=== PATIENT | female | born 1930 | race Caucasian/White ===

== ENCOUNTER 2019-11-15 16:14 | Inpatient (IN) | payer MEDICARE, MEDICAID, OTHER ==
[2019-11-15] MEDS ORDERED: Acetaminophen 325 MG TAB PO PRN (21:14)
[2019-11-15] MEDS ORDERED: Acetaminophen 650 MG Suppository PR PRN (21:14)
[2019-11-15] MEDS ORDERED: Sodium Chloride 0.9% 1,000 ML IV SCH (21:15)
[2019-11-15] MEDS ORDERED: Melatonin 3 MG TAB PO PRN (21:18)
[2019-11-15] MEDS: Sodium Chloride 0.9% 1,000 ML IV SCH (21:39)
[2019-11-15] MEDS: Piperacillin/Tazobactam 3.375 GM in Sodium Chloride 0.9% 100 ML IVPB SCH (22:29)
--- NOTE | 2019-11-15 22:54 | ULT ---
RIGHT UPPER QUADRANT ULTRASOUND: 11/15/19 HISTORY: Abnormal CT scan from earlier today. FINDINGS: The liver demonstrates homogeneous echotexture without focal mass or intrahepatic ductal dilatation. The gallbladder is distended measuring 11.7 cm in length. with mobile shadowing gallstones, gallbladd er all thickening (2 cm) and pericholecystic fluid. The common duct measures 5 mm in diameter. There is a prominent right renal pelvis without definite hydronephrosis. No free fluid is seen in the Morri son's pouch. IMPRESSION: Gallbladder hydrops with cholelithiasis, gallbladder wall thickening and pericholecystic fluid. Find ings are suspicious for acute cholecystitis. POS: [facility]
[2019-11-15] MEDS ORDERED: Furosemide 20 MG/2 ML VIAL SLOW IVP SCH (23:15)
--- NOTE | 2019-11-15 23:15 | PDOC.HHP ---
Hospitalist HPI - History of Present Illness Multiple complaints History of Present Illness: Patient is somewhat of a poor historian though she is AO x 4. Unclear what brought her in today but states she has been feeling worn out for the last few days. Normally functions independently but has been sedentary due to generalized weakness. Reports difficulty urinating and reports having issues with diarrhea which was worse this morning. She states it was watery but unsure if any blood in her stools. Complains of RLQ abdominal soreness but denies any significant pain. No chest pain, no cough or hemoptysis. Denies any nausea/vomiting but states she has not been drinking any fluids the last few days. Reports decreased appetite as well. ED Course: Patient initially seen in [facility] and per RN she was found to be hypoxic therefore put on Oxygen 2L by [place] and tested for COVID. She had CT imaging of the abdomen at outside ED and had a GB US done here. Per Dr. Balderas, she was treated with IV Antibiotics (Zosyn and Vanc) for possible cholecystitis and case was discussed with Dr. Avery who advised repeat LFTs in the morning. Per ED notes it appears patient at some point was in "Aflutter/block", also she was noted to have a BP of 96/41. An EKG done here reportedly showed NSR with HR 76 CXR done showed findings suspicious for mild congestive heart failure. Small bilateral pleural effusions seen with cardiomegaly, mild pulmonary vascular congestion with interstitial prominence that may reflect underlying interstitial edema. per CT A/P report patient with: 1. Groundglass nonspecific densities at the bilateral lower lobes, right greater than left. Noncalcified 1.8 x 0.8, 0.8 cm noncalcified pulmonary nodule at right milddle lobe laterally abutting the right hemidiaphragm. Tiny pleural effusion. 2. Very distended gallbladder. Poor images due to breathing motion. 3. 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 Labs were notable for indeterminate troponins, therefore Trop trended and given ASA 324 mg . BUN 25, Creat 1.14. WCC 19.5 UA+ for UTI. Hospitalist ROS - Review of Systems Constitutional: reports: weakness, malaise. denies: fever, chills, sweats, other Eyes: denies: pain, vision change, conjunctivae inflammation, eyelid inflammation, redness, other ENT: denies: ear pain, ear discharge, nose pain, nose discharge, nose congestion , mouth pain, mouth swelling, throat pain, throat swelling, other Respiratory: reports: shortness of breath, SOB with excertion. denies: cough, dry, hemoptysis, pleuritic pain, sputum, wheezing, other Cardiovascular: denies: chest pain, palpitations, orthopnea, paroxysmal noc. dyspnea, edema, light headedness, other Gastrointestinal: reports: abdominal pain (RLQ), diarrhea, other (decreased appetite). denies: nausea, vomiting, constipation, melena, hematochezia Genitourinary: reports: dysuria, other (decreased output) Musculoskeletal: denies: neck pain, shoulder pain, arm pain, back pain, hand pain, leg pain, foot pain, other Skin: denies: rash, lesions, divine, bruising, other Neurological: denies: weakness, numbness, incoordination, change in speech, confusion, seizures, other - Medication Medications: Active Medications Generic Name Dose Route Start Last Admin Trade Name Freq PRN Reason Stop Dose Admin Sodium Chloride 1,000 mls @ 50 mls/hr 11/15/19 21:18 11/15/19 21:39 Normal Saline 0.9% IV 1,000 mls .Q20H CELE Administration Piperacillin Sod/Tazobactam 100 mls @ 200 mls/hr 11/15/19 23:00 11/15/19 22: 29 Sod 3.375 gm/ Sodium Chloride IVPB 100 mls 0500,1100,1700,2300 CELE Administration CURRENT MEDICATIONS: CeleXA ThuNov 15, 2019 16:47 ALEIDA Pinto Kassidy tablet : Strength - 10 mg : ORAL Patient Dose: 0.5 tab(s) Oral once a day. Flonase Allergy Relief ThuNov 15, 2019 16:48 ALEIDA Pinto Kassidy spray,suspension : Strength - 50 mcg/actuation : NASAL Patient Dose: Unknown. metoprolol tartrate oral ThuNov 15, 2019 16:49 ALEIDA Pinto Kassidy tablet : Strength - 25 mg : ORAL Patient Dose: 0.5 tab(s) Oral once a day. Namenda ThuNov 15, 2019 16:49 ALEIDA Pinto, Nayeli tablet : Strength - 10 mg : ORAL Patient Dose: 10 mg Oral once a day. traZODone ThuNov 15, 2019 16:50 ALEIDA Pinto, Nayeli tablet : Strength - 50 mg : ORAL Patient Dose: 50 mg Oral once a day (at bedtime). Zofran oral ThuNov 15, 2019 16:50 ALEIDA Pinto, Nayeli tablet : Strength - 4 mg : ORAL Patient Dose: 4 mg Oral every 6 hours PRN. ALLERGIES: No known drug allergies. Hospitalist History - Past Medical History Cardiac: reports: HTN, Hyperlipidemia Heme/Onc: reports: Anemia NOS Psych: reports: Anxiety, Other (Dementia, insomnia, narcolepsy) - Past Surgical History Past Surgical History: reports: no pertinent history - Family History Family History: reports: no pertinent history - Social History Smoking Status: Never smoker Alcohol: reports: None Drugs: reports: none Living Situation: With Family, Other (retirement care facility with ) Activity level: independent ambulation - Exam General Appearance: NAD, awake alert Eye: PERRL ENT: normocephalic atraumatic, no oropharyngeal lesions Neck: supple, symmetric, no lymphadenopathy Heart: RRR, no murmur, no gallops, no rubs, normal peripheral pulses Respiratory: CTAB (e), no wheezes, no rales, no ronchi, normal chest expansion, no tachypnea, wheezes Respiratory - other findings: Reduced air entry at the bilateral bases Gastrointestinal: soft, non-distended, normal bowel sounds Gastrointestinal - other findings: mild RLQ discomfort with palpation Extremities: no edema Skin: no lesions, no rashes Neurological: cranial nerve grossly intact, normal sensation to touch, no weakness Musculoskeletal: normal tone, normal strength, no muscle wasting, generalized weakness Psychiatric: normal affect, A&O x 3, oriented to person, oriented to place, oriented to time Hospitalist Results - Radiology Interpretation CT scan - abdomen Status: report reviewed by fl Hospitalist H&P A/P - Problem (1) Abdominal discomfort Code(s): R10.9 - UNSPECIFIED ABDOMINAL PAIN Status: Acute (2) Dysuria Code(s): R30.0 - DYSURIA Status: Acute (3) Generalized weakness Code(s): R53.1 - WEAKNESS Status: Acute (4) Shortness of breath Code(s): R06.02 - SHORTNESS OF BREATH Status: Resolved (5) Diarrhea Code(s): R19.7 - DIARRHEA, UNSPECIFIED Status: Acute (6) Hypertension Code(s): I10 - ESSENTIAL (PRIMARY) HYPERTENSION Status: Chronic (7) Hyperlipidemia Code(s): E78.5 - HYPERLIPIDEMIA, UNSPECIFIED Status: Chronic (8) Anxiety Code(s): F41.9 - ANXIETY DISORDER, UNSPECIFIED Status: Chronic (9) Anemia Code(s): D64.9 - ANEMIA, UNSPECIFIED Status: Chronic (10) Dementia Code(s): F03.90 - UNSPECIFIED DEMENTIA WITHOUT BEHAVIORAL DISTURBANCE Status: Chronic - Plan Plan: Cardiac monitoring. Trend troponins. Check Mg+ and BNP. Echo ordered. Lasix 20 mg IV x 1 given changes of CHF on CXR. Monitor O2 sats. D-Dimer added on. COVID testing pending. UA/UCx pending. Continue Cholecystitis. Continue IV antibiotics. RUQ results pending. Repeat LFTs in the am. Dr. Avery was consulted, awaiting surgical review. Stool studies including C. Diff. Orthostatic BPs. PT/OT consults. CODE STATUS: Has out of hospital DNAR. MPOA: Her son Jose Antonio Mills.
[2019-11-15 23:57] LABS: CKMB 2.1 ng/mL (0-6.6)
[2019-11-16 02:49] LABS: CKMB 2.6 ng/mL (0-6.6)
[2019-11-16 05:46] LABS: #Eosinphils 0.2 thou/uL (0.0-0.7); #Lymphocytes 1.8 thou/uL (1.20-3.40); #Monocytes 1.2 thou/uL (0.11-0.59); #Neutrophils 13.4 thou/uL (1.40-6.50); %Basophils 0.3 % (0.0-1.0); %Eosinophils 0.9 % (0.0-10.0); %Lymphocytes 10.8 % (21.0-51.0); %Neutrophils 81.1 % (42.0-75.0); Hemoglobin 13.9 g/dL (12.0-16.0); Mean Corpuscular HGB CONC 32.8 g/dL (32.0-36.0); Mean Corpuscular Hemoglobin 28.2 pg (27.0-31.0); Mean Corpuscular Volume 85.8 fL (78.0-98.0); Mean Platelet Volume 8.6 fL (7.4-10.4); Platelet Count 225 thou/uL (130-400); RBC Distribution Width 12.6 % (11.5-14.5); Red Blood Cell (RBC) Count 4.94 mill/uL (4.20-5.40); White Blood Cell (WBC) Count 16.6 thou/uL (4.8-10.8)
[2019-11-16 06:09] LABS: ALT (SGPT) 28 U/L (8-55); AST (SGOT) 34 U/L (5-34); Albumin 3.3 g/dL (3.4-4.8); Alkaline Phosphatase 83 U/L (40-110); Anion Gap 14 mmol/L (10-20); BUN (Urea Nitrogen) 25 mg/dL (9.8-20.1); Bilirubin, Total 0.9 mg/dL (0.2-1.2); Calc. Creatinine Clearance 49 mL/min (70-130); Calcium 8.2 mg/dL (7.8-10.44); Carbon Dioxide 21 mmol/L (23-31); Chloride 106 mmol/L (98-107); Estimated GFR-MDRD 56; Globulin 3.3 g/dL (2.4-3.5); Glucose 91 mg/dL (83-110); Lipase 16 U/L (8-78); Protein, Total 6.6 g/dL (6.0-8.3); Sodium 138 mmol/L (136-145)
[2019-11-16] MEDS: Piperacillin/Tazobactam 3.375 GM in Sodium Chloride 0.9% 100 ML IVPB SCH ×4 (06:28→22:29)
[2019-11-16] MEDS: Furosemide 20 MG/2 ML VIAL SLOW IVP SCH ×2 (06:28→13:18)
--- NOTE | 2019-11-16 07:50 | CT ---
PRELIMINARY REPORT/[facility]/EMERGENCY AFTER HOURS PROCEDURE: This report was discussed with Angelica Finnegan RN by Nadira Vigil on Nov 16, 2019 02:17:00 CDT. Jim warner electronically signed by Nadira Vigil on November 16, 2019 2:17:[address] ANGIOGRAM OF THE CHEST CLINICAL HISTORY: Dyspnea and positive D-Dimer. TECHNIQUE: Axial images obtained. Coronal images obtained. Sagittal images obtained. Exam is performe d with administration of 100 mL of Isovue-370 intravenous contrast. 3D maximum intensity projections (MIPs) were performed. Per PQRS, CT exam is performed using one or more of the following dose reduction technique: Automated exposure control, adjustment of mA and/or KV according to patient size, or use of iterative reconstruction techniques. COMPARISON: None. FINDINGS: Post-contrast appearance of the pulmonary arteries shows no evidence for filling defect. Normal caliber of pulmonary artery trunk in relationship to the aorta. Aorta is negative for aortic dissection and aortic aneurysm. Normal sized heart. Small right pleural effusion is seen. No consolidations. Negative for pneumothorax. Gallbladder is mildly hydropic with thickening of t he gallbladder garcia suggesting acute cholecystitis. Recommend gallbladder ultrasound for further workup. A low-density lesion in the left midpole kidney is seen measuring 4.4 cm in diameter like ly cystic structure vs mass lesion. Recommend non-emergent ultrasound follow-up. Atherosclerotic calcification of the aorta and coronary arteries is seen. The aorta is ectatic. Atele ctasis and scarring of the lung bases is seen. A small hiatal hernia is seen. The rest of the viscera, and bones are unremarkable. IMPRESSION: 1. Acute cholecystitis. Recommend gallbladder ultrasound for further workup. 2. Left midpole renal cyst measuring 4.4 cm. Recommend non-emergent ultrasound follow-up. 3. Small right pleural effusion. Otherwise, negative for pulmonary embolism, aortic aneurysm, or aort ic dissection. 4. Chronic findings as described above. ELECTRONICALLY SIGNED BY: Richie Mayorga MD Nov 16, 2019 1:49:12 AM CDT FINAL REPORT: EXAM: CT ANGIOGRAM OF THE CHEST: HISTORY: Elevated d-dimer. Hypoxia. COMPARISON: None. TECHNIQUE: CT angiogram of the chest is performed in the axial plane. Three-dimensional reformatted images are s ubmitted for interpretation. FINDINGS: Mediastinum: No mass, lymphadenopathy or hematoma. HEART: Upper normal heart size. No significant pericardial fluid. Aorta: Atherosclerosis without aneurysm, dissection or periaortic fat stranding. Upper solid abdominal viscera: Persistent fullness of the head of the pancreas compatible with previo usly suggested possible venous varix. CT evidence of pericholecystic fluid with mild gallbladder distention, incompletely evaluated. Hypodensity emanates from the left renal cortex. Trachea and central bronchi: Patent. Pleural spaces: Small right-sided pleural effusion. Lung parenchyma: Right lower lobe opacification may represent atelectasis, pneumonia or aspiration. P atchy groundglass opacities are noted in the left and right lung. Pneumothorax: None. Osseous structures: No lytic or blastic lesions. Pulmonary arteries: Adequate contrast opacification pulmonary arterial system to the level of segment al arteries. No filling defect to suggest pulmonary embolism. IMPRESSION: 1. This report is in agreement with initial report by [facility]. 2. No evidence of pulmonary artery embolism to the level of the segmental arteries. 2. Distended gallbladder worrisome for cholecystitis. Refer to gallbladder ultrasound report 11/15/2019 for further detail. Transcribed Date/Time: 11/16/2019 8:17 AM
[2019-11-16] MEDS: Saccharomyces boulardii 250 MG CAP PO SCH ×2 (08:24→10:21)
[2019-11-16] MEDS: Aspirin Chewable 81 MG TAB PO SCH ×2 (08:24→10:21)
[2019-11-16] MEDS ORDERED: Prevnar 13-Val Conj/PF 0.5 ML SYRINGE IM ONE (09:00)
[2019-11-16] MEDS ORDERED: Potassium Chloride 20 MEQ TAB PO SCH (12:30)
[2019-11-16] MEDS: Vancomycin 1 GM in Premix Bag 1 BAG IVPB SCH (13:16)
[2019-11-16] MEDS ORDERED: Iopamidol-370 76% 500 ML 1 ML ONE (14:06)
[2019-11-16 14:36] VITALS: BMI 29.6
--- NOTE | 2019-11-16 16:37 | CON ---
DATE OF CONSULTATION: 11/16/2019 REASON FOR CONSULTATION: Positive troponins. HISTORY OF PRESENT ILLNESS: Ms. Mills is an 89-year-old female, who comes to the hospital for not feeling well. She is oriented, but has difficult time giving history. She noticed she had a hard time going to the bathroom urinating and eventually started having diarrhea and right lower quadrant abdominal pain. She was evaluated in the ER and admitted. After CT of the abdomen showed possible cholecystitis during her admission, she was given IV antibiotics just to cover her for possible sepsis. Troponins were drawn and they were mildly elevated, so Cardiology has been consulted for this. She denies chest pain. No angina. No shortness of breath. PAST MEDICAL HISTORY: 1. Hypertension. 2. Hyperlipidemia. 3. Anemia. 4. Anxiety. 5. Alzheimer dementia. 6. Insomnia. 7. Narcolepsy. PAST SURGICAL HISTORY: None. OUTPATIENT MEDICATIONS: 1. Celexa. 2. Flonase. 3. Metoprolol tartrate 25 mg daily. 4. Namenda. 5. Trazodone. 6. Zofran p.r.n. SOCIAL HISTORY: No alcohol, tobacco, or drugs. She lives in a long-term care facility with her . REVIEW OF SYSTEMS: A 12-point review of systems was done and was all negative unless stated in the history of present illness. PHYSICAL EXAMINATION: VITAL SIGNS: Temperature 97.7, pulse 78, respiratory rate 18, saturation 94% on room air, blood pressure 117/59. GENERAL: Awake, alert, oriented to person, place, and difficulty with time and no distress. HEENT: Normocephalic and atraumatic. NECK: Supple. LUNGS: Clear. CARDIOVASCULAR: S1, S2. ABDOMEN: Has tenderness, but no rebound or guarding. EXTREMITIES: No edema. SKIN: Warm and dry. LABORATORY DATA: Laboratory work was reviewed. White count of 16, hemoglobin 13, hematocrit 42, and platelet count 225. Coags, D-dimer was high. Chemistry; sodium 138, potassium was 3.0, chloride 106, carbon dioxide of 21, anion gap of 14, BUN 25, creatinine 0.94, bilirubin is total of 0.9 with direct of 0.5. Troponin was 0.03 and 0.04. BNP was 61. Albumin of 3.3, normal TSH, normal lipase. EKG was reviewed. CT of the chest and thorax was reviewed as well as abdominal ultrasound. ASSESSMENT: 1. Type 2 demand type of ischemia. This is mild intermittent troponin, which is unlikely to be related to an acute coronary syndrome. Most likely, this is just demand ischemia from her current situation. 2. Acute cholecystitis. Per primary team. PLAN: Echocardiogram once COVID-19 has been ruled out. Thank you for letting us to participate in the care of your patient. We will follow. Job ID: [id number]
--- NOTE | 2019-11-16 18:12 | PDOC.HOSPP ---
- Subjective Encounter Date: 11/16/19 Encounter Time: 18:05 Subjective: f/u for abd pain and suspected cholecystitis on current Zosyn. Plans for conservative mgmt and HIDA scan per Gen surgery recommendations. COVID-19 pending. - Objective Vital Signs & Weight: Vital Signs (12 hours) Temp Pulse Resp BP Pulse Ox 11/16/19 11:08 97.7 F 78 18 117/59 L 94 L 11/16/19 08:00 97.7 F 84 18 106/68 93 L Weight Admit Weight 158 lb 12.8 oz Weight 162 lb 1.6 oz I&O: 11/15/19 11/16/19 11/17/19 06:59 06:59 06:59 Intake Total 528 Output Total 700 600 Balance -172 -600 Result Diagrams: 11/16/19 05:08 11/16/19 05:08 Additional Labs: Microbiology 11/16/19 08:30 Stool - Pending C. difficile GDH Antigen & Toxins - Final 11/16/19 08:30 Stool - Loose Stool Lactoferrin - Final 11/16/19 08:30 Stool - Loose Rapid Parasite Screen - Final 11/16/19 08:30 Stool Campylobacter Antigen Assay - Final 11/16/19 08:30 Stool Shiga Toxin Test - Final 11/16/19 00:39 Urine clean catch Urine Culture - Preliminary NO GROWTH AT 12 HOURS 11/15/19 11:41 Venous blood - Right Arm Blood Culture - Preliminary Specimen has been received and culture in progress. No Growth to date. 11/15/19 11:35 Venous blood - Right Hand Blood Culture - Preliminary Specimen has been received and culture in progress. No Growth to date. Laboratory Tests 11/15/19 11/15/19 11/15/19 11:41 11:41 15:12 D-Dimer Potassium 3.6 Creatinine 1.14 H Magnesium Troponin I 0.047 H 0.056 H Lipase TSH 3rd Generation 11/15/19 11/15/19 11/15/19 21:39 21:39 23:26 D-Dimer 4.22 H Potassium Creatinine Magnesium 2.4 Troponin I 0.046 H Lipase TSH 3rd Generation 11/16/19 11/16/19 11/16/19 01:52 05:08 05:08 D-Dimer Potassium Creatinine Magnesium Troponin I 0.036 H Lipase 16 TSH 3rd Generation 1.0233 Radiology Reviewed by me: Yes (CTA chest - no PE, gallbladder thickening) EKG Reviewed by me: Yes (Tele - SR) Hospitalist ROS - Medication Medications: Active Medications Generic Name Dose Route Start Last Admin Trade Name Elsa PRN Reason Stop Dose Admin Aspirin 81 mg 11/16/19 09:00 11/16/19 10:21 Aspirin Chewable PO 81 mg DAILY CELE Administration Furosemide 20 mg 11/16/19 06:00 11/16/19 13:18 Lasix SLOW IVP 20 mg 0600,1400 CELE Administration Sodium Chloride 1,000 mls @ 50 mls/hr 11/15/19 21:18 11/15/19 21:39 Normal Saline 0.9% IV 1,000 mls .Q20H CELE Administration Piperacillin Sod/Tazobactam 100 mls @ 200 mls/hr 11/15/19 23:00 11/16/19 16: 43 Sod 3.375 gm/ Sodium Chloride IVPB 100 mls 0500,1100,1700,2300 CELE Administration Vancomycin HCl 1 gm/ Device 200 mls @ 200 mls/hr 11/16/19 14:00 11/16/19 13: 16 IVPB 200 mls 1400 CELE Administration Saccharomyces Boulardii 250 mg 11/16/19 09:00 11/16/19 10:21 Florastor PO 250 mg DAILY CELE Administration - Exam General Appearance: NAD, awake alert Eye: PERRL, anicteric sclera ENT: normocephalic atraumatic, no oropharyngeal lesions Neck: supple, symmetric, no JVD, no thyromegaly, no lymphadenopathy Heart: RRR, no gallops, no rubs, normal peripheral pulses Heart - other findings: S1, S2 Respiratory: CTAB, no wheezes, no rales, no ronchi, normal chest expansion Gastrointestinal: soft, non-tender, normal bowel sounds, no palpable masses Extremities: no cyanosis, no clubbing, no edema Skin: normal turgor Neurological: cranial nerve grossly intact, no new deficit Musculoskeletal: normal tone, generalized weakness Psychiatric: normal affect, oriented to person, oriented to place Hosp A/P (1) Cholecystitis, acute Code(s): K81.0 - ACUTE CHOLECYSTITIS Status: Acute Plan: suspected given CT/ABD sono findings, plan for HIDA in am, may need conservative mgmt (2) Abdominal pain Code(s): R10.9 - UNSPECIFIED ABDOMINAL PAIN Status: Acute Qualifiers: Abdominal location: epigastric Qualified Code(s): R10.13 - Epigastric pain Plan: Improved, supportive, see #1 (3) Dyspnea Code(s): R06.00 - DYSPNEA, UNSPECIFIED Status: Acute Plan: Etiology unclear, CXR negative (4) Diarrhea Code(s): R19.7 - DIARRHEA, UNSPECIFIED Status: Acute Plan: Stool studies negative, supportive (5) Type 2 myocardial infarction Code(s): I21.A1 - MYOCARDIAL INFARCTION TYPE 2 Status: Acute Plan: Secondary to #1, conservative mgmt (6) Generalized weakness Code(s): R53.1 - WEAKNESS Status: Chronic (7) Hypertension Code(s): I10 - ESSENTIAL (PRIMARY) HYPERTENSION Status: Chronic Qualifiers: Hypertension type: essential hypertension Qualified Code(s): I10 - Essential (primary) hypertension - Plan continue antibiotics, PT/OT, pediatric social worker, out of bed/ambulate, DVT proph w/ SCDs Stable currently Supportive mgmt HIDA scan in am 2D echo pending D/C Lasix AM lab: CMP, CBC COVID-19 negative D/C precautions Likely d/c in 24
--- NOTE | 2019-11-16 19:58 | CON ---
DATE OF CONSULTATION: CHIEF COMPLAINT: Fever and abdominal pain. HISTORY OF PRESENT ILLNESS: The patient is an 89-year-old female, who has had a stroke. Lives in a intermediate. Has dementia. She was sent to the emergency room in [place] with fever. There, a CT scan was obtained that showed a very distended gallbladder, thickened wall, and pericholecystic fluid consistent with acute cholecystitis. She was vomiting. She was sent here. PAST MEDICAL HISTORY: Significant for dementia, anxiety, hypokalemia, hypertension, hyperlipidemia, history of CVA. PAST SURGICAL HISTORY: Unknown. MEDICATIONS: 1. Celexa. 2. Flonase. 3. Metoprolol. 4. Namenda. 5. Trazodone. 6. Zofran. SOCIAL HISTORY: She lives in a intermediate. She is a do not resuscitate patient per family. PHYSICAL EXAMINATION: VITAL SIGNS: Her temperature is 97.7, pulse 78, blood pressure 117/59. Of note, she was in atrial fibrillation at the emergency room in [place] that has been corrected. GENERAL: She is somewhat confused, but awake. She does not appear to be in any distress. LUNGS: Clear. HEART: Regular rate and rhythm. ABDOMEN: Obese, soft. I really cannot elicit any significant tenderness. EXTREMITIES: Unremarkable. LABORATORY DATA: Her white blood cell count is 16,000, hemoglobin and hematocrit are 13 and 42, platelet count of 225. Electrolytes are fine, her potassium is low at 3, CO2 of 21. Liver function tests are normal. She had an abdominal ultrasound that shows cholelithiasis, hydrops of the gallbladder, gallbladder wall thickening with pericholecystic fluid consistent with acute cholecystitis. ASSESSMENT: Possible acute cholecystitis. PLAN: I have discussed her care with her next of kin, her son and [id number] that is Jose Antonio Mills and Francesca Mills. They do not want any surgery if at all possible. They would like to treat her medically. So, the plan is to order a HIDA scan. If there is nonvisualization of the gallbladder, we would recommend percutaneous drainage. If does visualize, then treat with IV antibiotics. Job ID: [id number]
[2019-11-16] MEDS: Sodium Chloride 0.9% 1,000 ML IV SCH (22:22)
[2019-11-17] MEDS: Piperacillin/Tazobactam 3.375 GM in Sodium Chloride 0.9% 100 ML IVPB SCH ×4 (04:50→22:03)
[2019-11-17 05:34] LABS: Carbon Dioxide 17 mmol/L (23-31)
[2019-11-17 05:48] LABS: Band 14 % (5-11); Eosinophils 2 % (0-10); Hemoglobin 12.4 g/dL (12.0-16.0); Lymphocytes 6 % (21-51); MDiff Complete? YES; Mean Corpuscular HGB CONC 32.2 g/dL (32.0-36.0); Mean Corpuscular Hemoglobin 27.8 pg (27.0-31.0); Mean Corpuscular Volume 86.4 fL (78.0-98.0); Mean Platelet Volume 8.1 fL (7.4-10.4); Monocytes 7 % (0-10); Neutrophil 71 % (42-75); Platelet Count 211 thou/uL (130-400); RBC Distribution Width 12.4 % (11.5-14.5); Red Blood Cell (RBC) Count 4.44 mill/uL (4.20-5.40); White Blood Cell (WBC) Count 12.1 thou/uL (4.8-10.8)
[2019-11-17 06:31] LABS: ALT (SGPT) 30 U/L (8-55); AST (SGOT) 37 U/L (5-34); Albumin 2.8 g/dL (3.4-4.8); Alkaline Phosphatase 78 U/L (40-110); Anion Gap 16 mmol/L (10-20); BUN (Urea Nitrogen) 18 mg/dL (9.8-20.1); Bilirubin, Total 0.8 mg/dL (0.2-1.2); Calc. Creatinine Clearance 56 mL/min (70-130); Calcium 8.1 mg/dL (7.8-10.44); Chloride 112 mmol/L (98-107); Estimated GFR-MDRD 69; Glucose 77 mg/dL (83-110); Potassium 3.2 mmol/L (3.5-5.1); Sodium 141 mmol/L (136-145)
[2019-11-17] MEDS: Aspirin Chewable 81 MG TAB PO SCH (08:24)
[2019-11-17] MEDS: Saccharomyces boulardii 250 MG CAP PO SCH (08:24)
--- NOTE | 2019-11-17 12:22 | NM ---
Nuclear medicine HIDA scan HISTORY: Evaluate for acute cholecystitis. COMPARISON: None TECHNIQUE: Patient was administered 4.5 mCi of technetium 99m mebrofenin intravenously. Patient was p retreated 1.4 mcg of CCK intravenously, 30 minutes prior to imaging. FINDINGS: Appropriate uptake of the radiotracer by the hepatic parenchyma. There is passage of radiot racer from the common bile duct into small bowel loops. On the 75 minute images, there is localization of radiotracer in the gallbladder IMPRESSION: No scintigraphic evidence of acute cholecystitis.
--- NOTE | 2019-11-17 12:37 | PQF ---
DATE: 11-17-19 ATTN: DR. CELSO TREVIÑO Please exercise your independent, professional judgment in responding to the clarification form. Clinical indicators are provided on the bottom of this form for your review Please check appropriate box(es): [ ] Sepsis present on admission [ ] Sepsis NOT present on admission [ ] Unable to determine Due to: [ ] SIRS due to non-infectious process (please specify etiology) [ ] with organ dysfunction [ ] without organ dysfunction [ x ] Localized infection without sepsis [ ] Other diagnosis [ ] Unable to determine For continuity of documentation, please document condition throughout progress notes and discharge summary. Thank You. CLINICAL INDICATORS - SIGNS / SYMPTOMS / LABS / RESULTS AND LOCATION IN MR: ER DX 11-15-19: SIRS CRITERIA, POSSIBLE CHOLECYSTITIS WBC: 11-16-19: 16.6, 11-17-19: 12.1 BANDS: 11-17-19: 14% PN DR. TREVIÑO 11-16-19: ACUTE CHOLECYSTITIS, ACUTE TYPE 2 AK, ABD PAIN, DYSPNEA, DIARRHEA TEMP: 11-16-19: 100.2 RISK FACTORS / RESULTS AND LOCATION IN MR: ER DX 11-15-19: SIRS CRITERIA, POSSIBLE CHOLECYSTITIS PN DR. TREVIÑO 11-16-19: ACUTE CHOLECYSTITIS, ACUTE TYPE 2 AK, ABD PAIN, DYSPNEA, DIARRHEA TREATMENTS / RESULTS AND LOCATION IN MR: MAR: 11-15-19: ZOSYN IV, VANCOMYCIN IV, NS IVF (This form is maintained as a part of the permanent medical record) 2014 [employer] All Rights Reserved ALEIDA [email or web address]
--- NOTE | 2019-11-17 13:08 | PDOC.CPN ---
- Subjective Date: 11/17/19 Time: 13:07 - Objective Allergies/Adverse Reactions: Allergies Allergy/AdvReac Type Severity Reaction Status Date / Time No Known Allergies Allergy Verified 11/15/19 21:33 Visit Medications: Current Medications Acetaminophen (Tylenol) 650 mg PO Q4H PRN PRN Reason: Headache/Fever/Mild Pain (1-3) Acetaminophen (Tylenol) 650 mg ME Q4H PRN PRN Reason: Headache/Fever/Mild Pain (1-3) Aspirin (Aspirin Chewable) 81 mg PO DAILY [facility] Last Admin: 11/17/19 08:24 Dose: 81 mg Sodium Chloride (Normal Saline 0.9%) 1,000 mls @ 50 mls/hr IV .Q20H [facility] Last Admin: 11/16/19 22:22 Dose: 1,000 mls Piperacillin Sod/Tazobactam (Sod 3.375 gm/ Sodium Chloride) 100 mls @ 200 mls/ hr IVPB 0500,1100,1700,2300 [facility] Last Admin: 11/17/19 12:59 Dose: 100 mls Vancomycin HCl 1 gm/ Device 200 mls @ 200 mls/hr IVPB 1400 [facility] Last Admin: 11/16/19 13:16 Dose: 200 mls Melatonin (Melatonin) 3 mg PO HS PRN PRN Reason: Insomnia Miscellaneous Medication (Pharmacy To Dose) 1 each IVPB PRN PRN PRN Reason: Pharmacy to dose Saccharomyces Boulardii (Florastor) 250 mg PO DAILY [facility] Last Admin: 11/17/19 08:24 Dose: 250 mg Sodium Chloride (Flush - Normal Saline) 10 ml IVF Q12HR PRN PRN Reason: Saline Flush Sodium Chloride (Flush - Normal Saline) 10 ml IVF PRN PRN PRN Reason: Saline Flush Vital Signs & Weight: Vital Signs Temp Pulse Pulse Pulse Resp BP BP 11/17/19 12:00 98.3 F 63 18 11/17/19 09:25 62 60 146/70 H 164/70 H 11/17/19 07:24 98.0 F 69 20 11/17/19 02:55 98.8 F 63 16 BP Pulse Ox 11/17/19 12:00 176/72 H 95 11/17/19 09:25 11/17/19 07:24 162/71 H 94 L 11/17/19 02:55 130/60 Admit Weight 158 lb 12.8 oz Weight 157 lb - Labs Result Diagrams: 11/17/19 04:24 11/17/19 04:24 Troponin/CKMB CK-MB (CK-2) 2.6 ng/mL (0-6.6) 11/16/19 01:52 Troponin I 0.036 ng/mL (< 0.028) H 11/16/19 01:52 - Telemetry Sinus rhythms and dysrhythmias: sinus rhythm - Assessment/Plan Assessment/Plan: 1. Type 2 IL, demand ischemia 2. Choilecystitis PLAN: - Normal echo - No symptoms from cardiac perspective. - CV stable. - Will sign off Please call with any questions.
[2019-11-17 13:54] LABS: Vancomycin, Trough 7.1 ug/mL
[2019-11-17] MEDS: Vancomycin 1 GM in Premix Bag 1 BAG IVPB SCH (14:32)
--- NOTE | 2019-11-17 14:40 | PDOC.HOSPP ---
- Subjective Encounter Date: 11/17/19 Encounter Time: 14:25 Subjective: f/u suspected cholecystitis with negative HIDA scan. Pt receiving Zosyn/ Vancomycin. Feels better overall. - Objective Vital Signs & Weight: Vital Signs (12 hours) Temp Pulse Pulse Pulse Resp BP BP 11/17/19 12:00 98.3 F 63 18 11/17/19 09:25 62 60 146/70 H 164/70 H 11/17/19 07:24 98.0 F 69 20 11/17/19 02:55 98.8 F 63 16 BP Pulse Ox 11/17/19 12:00 176/72 H 95 11/17/19 09:25 11/17/19 07:24 162/71 H 94 L 11/17/19 02:55 130/60 Weight Admit Weight 158 lb 12.8 oz Weight 157 lb I&O: 11/16/19 11/17/19 11/18/19 06:59 06:59 06:59 Intake Total 528 1800 Output Total 700 1000 Balance -172 800 Result Diagrams: 11/17/19 04:24 11/17/19 04:24 Additional Labs: Microbiology 11/16/19 08:30 Stool - Pending C. difficile GDH Antigen & Toxins - Final 11/16/19 08:30 Stool - Loose Stool Lactoferrin - Final 11/16/19 08:30 Stool - Loose Rapid Parasite Screen - Final 11/16/19 08:30 Stool Campylobacter Antigen Assay - Final 11/16/19 08:30 Stool Shiga Toxin Test - Final 11/16/19 00:39 Urine clean catch Urine Culture - Final NO GROWTH AT 36 HOURS 11/16/19 08:30 Stool Stool Culture - Preliminary 11/16/19 00:39 Urine clean catch Urine Culture - Preliminary NO GROWTH AT 12 HOURS 11/15/19 11:41 Venous blood - Right Arm Blood Culture - Preliminary Specimen has been received and culture in progress. No Growth to date. 11/15/19 11:41 Venous blood - Right Arm Blood Culture - Preliminary NO GROWTH AT 48 HOURS 11/15/19 11:35 Venous blood - Right Hand Blood Culture - Preliminary Specimen has been received and culture in progress. No Growth to date. 11/15/19 11:35 Venous blood - Right Hand Blood Culture - Preliminary NO GROWTH AT 48 HOURS Laboratory Tests 11/15/19 11/15/19 11/15/19 11:41 11:41 15:12 WBC Neutrophils % Neutrophils % (Manual) D-Dimer Potassium 3.6 Creatinine 1.14 H Magnesium Troponin I 0.047 H 0.056 H Lipase TSH 3rd Generation Vancomycin Trough COVID-19 PCR 11/15/19 11/15/19 11/15/19 16:37 21:39 21:39 WBC Neutrophils % Neutrophils % (Manual) D-Dimer Potassium Creatinine Magnesium 2.4 Troponin I 0.046 H Lipase TSH 3rd Generation Vancomycin Trough COVID-19 PCR Not Detected 11/15/19 11/16/19 11/16/19 23:26 01:52 05:08 WBC Neutrophils % Neutrophils % (Manual) D-Dimer 4.22 H Potassium 3.0 L Creatinine Magnesium Troponin I 0.036 H Lipase 16 TSH 3rd Generation Vancomycin Trough COVID-19 PCR 11/16/19 11/16/19 11/17/19 05:08 05:08 04:24 WBC 16.6 H Neutrophils % 81.1 H Neutrophils % (Manual) 71 D-Dimer Potassium Creatinine Magnesium Troponin I Lipase TSH 3rd Generation 1.0233 Vancomycin Trough COVID-19 PCR 11/17/19 12:43 WBC Neutrophils % Neutrophils % (Manual) D-Dimer Potassium Creatinine Magnesium Troponin I Lipase TSH 3rd Generation Vancomycin Trough 7.1 COVID-19 PCR Radiology Reviewed by me: Yes (HIDA scan - negative) EKG Reviewed by me: Yes (Tele - SR) Hospitalist ROS - Medication Medications: Active Medications Generic Name Dose Route Start Last Admin Trade Name Freq PRN Reason Stop Dose Admin Aspirin 81 mg 11/16/19 09:00 11/17/19 08:24 Aspirin Chewable PO 81 mg DAILY CELE Administration Sodium Chloride 1,000 mls @ 50 mls/hr 11/15/19 21:18 11/16/19 22:22 Normal Saline 0.9% IV 1,000 mls .Q20H CELE Administration Piperacillin Sod/Tazobactam 100 mls @ 200 mls/hr 11/15/19 23:00 11/17/19 12: 59 Sod 3.375 gm/ Sodium Chloride IVPB 100 mls 0500,1100,1700,2300 CELE Administration Saccharomyces Boulardii 250 mg 11/16/19 09:00 11/17/19 08:24 Florastor PO 250 mg DAILY CELE Administration - Exam General Appearance: NAD, awake alert Eye: PERRL, anicteric sclera ENT: normocephalic atraumatic, no oropharyngeal lesions Neck: supple, symmetric, no JVD, no thyromegaly, no lymphadenopathy Heart: RRR, no murmur, no gallops, no rubs, normal peripheral pulses Heart - other findings: S1,S2 Respiratory: CTAB, no wheezes, no rales Gastrointestinal: soft, non-tender, non-distended, normal bowel sounds, no palpable masses Extremities: no cyanosis, no clubbing, no edema Skin: normal turgor, no lesions Neurological: cranial nerve grossly intact, no new deficit Musculoskeletal: normal tone, normal strength Psychiatric: oriented to person, oriented to place Hosp A/P (1) Cholecystitis, acute Code(s): K81.0 - ACUTE CHOLECYSTITIS Status: Acute Plan: Suspected with negative HIDA scan, continue Zosyn, d/c Vancomycin, likely home in 24h (2) Abdominal pain Code(s): R10.9 - UNSPECIFIED ABDOMINAL PAIN Status: Acute Qualifiers: Abdominal location: epigastric Qualified Code(s): R10.13 - Epigastric pain Plan: Resolving (3) Dyspnea Code(s): R06.00 - DYSPNEA, UNSPECIFIED Status: Acute Plan: Resolved (4) Diarrhea Code(s): R19.7 - DIARRHEA, UNSPECIFIED Status: Acute Plan: Resolved (5) Type 2 myocardial infarction Code(s): I21.A1 - MYOCARDIAL INFARCTION TYPE 2 Status: Acute (6) Generalized weakness Code(s): R53.1 - WEAKNESS Status: Chronic (7) Hypertension Code(s): I10 - ESSENTIAL (PRIMARY) HYPERTENSION Status: Chronic Qualifiers: Hypertension type: essential hypertension Qualified Code(s): I10 - Essential (primary) hypertension - Plan continue antibiotics, PT/OT, out of bed/ambulate, DVT proph w/SCDs Stable currently Supportive mgmt HIDA scan negative 2D echo normal D/C Lasix Continue Zosyn IV D/C Vancomycin AM lab: BMP, CBC COVID-19 negative D/C precautions Likely d/c in 24
[2019-11-17] MEDS ORDERED: Potassium Chloride 20 MEQ TAB PO SCH ×3 (14:45→21:00)
[2019-11-18 04:39] LABS: Band 4 % (5-11); Eosinophils 6 % (0-10); Lymphocytes 8 % (21-51); MDiff Complete? YES; Mean Corpuscular HGB CONC 33.1 g/dL (32.0-36.0); Mean Corpuscular Hemoglobin 28.8 pg (27.0-31.0); Mean Corpuscular Volume 87.1 fL (78.0-98.0); Mean Platelet Volume 7.6 fL (7.4-10.4); Monocytes 6 % (0-10); Neutrophil 76 % (42-75); Platelet Count 200 thou/uL (130-400); Platelet Morphology Comment Appears Adequate; RBC Distribution Width 12.3 % (11.5-14.5); RBC Morphology Normal; Red Blood Cell (RBC) Count 4.15 mill/uL (4.20-5.40); White Blood Cell (WBC) Count 11.3 thou/uL (4.8-10.8)
[2019-11-18 04:41] LABS: Anion Gap 10 mmol/L (10-20); BUN (Urea Nitrogen) 13 mg/dL (9.8-20.1); Calc. Creatinine Clearance 62 mL/min (70-130); Carbon Dioxide 21 mmol/L (23-31); Chloride 114 mmol/L (98-107); Estimated GFR-MDRD 77; Glucose 80 mg/dL (83-110); Potassium 3.5 mmol/L (3.5-5.1); Sodium 141 mmol/L (136-145)
[2019-11-18] MEDS: Piperacillin/Tazobactam 3.375 GM in Sodium Chloride 0.9% 100 ML IVPB SCH ×2 (05:19→10:43)
[2019-11-18] MEDS ORDERED: Potassium Chloride 20 MEQ TAB PO SCH (08:00)
[2019-11-18] MEDS: Saccharomyces boulardii 250 MG CAP PO SCH (08:49)
[2019-11-18] MEDS: Aspirin Chewable 81 MG TAB PO SCH (08:49)
[2019-11-18 11:25] VITALS: TEMP 97.6
[2019-11-18 12:06] VITALS: BP 152/70
--- NOTE | 2019-11-18 22:04 | DIS ---
DATE OF ADMISSION: 11/15/2019 DATE OF DISCHARGE: 11/18/2019 DISCHARGE DIAGNOSES: 1. Acute cholecystitis, suspected, resolving. 2. Abdominal pain secondary to #1, resolved. 3. Dyspnea, resolved. 4. Type 2 myocardial infarction due to demand ischemia, medical management. 5. Generalized weakness, chronic. 6. Hypertension, stable. CONSULTATIONS: 1. Dr. Solorio with Cardiology Service. 2. Dr. Avery with General Surgery Service. PERTINENT LABORATORY AND X-RAY FINDINGS: Potassium ranged between 3.0 to 3.5. Magnesium level 2.4. AST ranged between 34 to 37. ALT ranged between 28 to 30. Alkaline phosphatase ranged between 78 to 83. Troponin I ranged between 0.036 to 0.056. TSH 1.02. Lipase 16. CBC showed a white blood cell count ranging between 11.3 to 16.6. COVID-19 PCR not detected, 11/15/2019. Urine culture dated 11/16/2019, showed no growth at 36 hours. Stool culture dated 11/16/2019, showed normal enteric yvonne. Clostridium difficile antigen and toxin dated 11/16/2019, negative. Abdominal ultrasound dated 11/15/2019, showed gallbladder hydrops with cholelithiasis and gallbladder wall thickening. Findings concerning for acute cholecystitis. CT angiogram of the chest dated 11/16/2019, showed distended gallbladder, worrisome for cholecystitis. No evidence for pulmonary embolus. Hepatobiliary nuclear scan dated 11/17/2019, showed no scintigraphic evidence of acute cholecystitis. 2D transthoracic echocardiogram dated 11/17/2019, showed ejection fraction 55% to 60%. Diastolic dysfunction. [id number] mitral regurgitation. HOSPITAL COURSE: The patient initially presented with abdominal pain and diarrhea, evaluated with abdominal ultrasound showing questionable acute cholecystitis. The patient was initially placed on IV Zosyn and vancomycin and evaluated by the General Surgery Service. The patient underwent HIDA scan showing normal filling of the gallbladder. However, due to the patient's presentation, the patient was continued on IV Zosyn and vancomycin during her hospital course. The patient clinically improved with IV antibiotic therapy and no acute surgical intervention was recommended. The family and patient did not want to pursue any surgical procedures. The patient was also noted with mild demand ischemia and elevated troponin I consistent with patient's presentation. No specific intervention was recommended by the Cardiology Service and patient overall remained clinically stable under cardiac monitoring. The patient overall remained clinically stable during the hospital course and tolerated regular oral intake. I have examined the patient at the time of discharge and discussed followup instructions. The patient verbalizes understanding and agreement ready for discharge, 11/18/2019. DISCHARGE MEDICATIONS: 1. Enteric-coated aspirin 81 mg p.o. daily. 2. Levaquin 500 mg p.o. daily x5 days. 3. Flagyl 500 mg p.o. t.i.d. x5 days. 4. Metoprolol tartrate 12.5 mg p.o. daily. 5. Namenda 10 mg p.o. b.i.d. 6. Flonase 1 spray in each naris daily. 7. Celexa 5 mg p.o. daily. 8. Trazodone 50 mg p.o. at bedtime. 9. K-Dur 40 mEq p.o. daily x3 days. FOLLOWUP: The patient may follow up with Dr. Dasia Rodriguez at [facility]. CONDITION ON DISCHARGE: Stable. ACTIVITY: Ad kusum, rolling walker with standby assistance for ambulation. DIET: Regular. CODE STATUS: Do not attempt resuscitation. DISPOSITION: Discharged to [facility], 11/18/2019. TIME SPENT: Total time preparing and coordinating discharge, 34 minutes. Job ID: [id number]
== END 2019-11-18 13:43 | DRG 444 ==
LOC: ERS 16:14 → 2SW 20:17 → 2NO 11-16 20:30
PROVIDERS: ADMIT Internal Medicine; ATTEND Internal Medicine
DX: K81.0 Acute cholecystitis (principal); I21.A1 Myocardial infarction type 2; R65.10 Systemic inflammatory response syndrome (SIRS) of non-infectious origin without acute organ dysfunction; R06.00 Dyspnea, unspecified; I10 Essential (primary) hypertension; Z20.828 Contact with and (suspected) exposure to other viral communicable diseases; F41.9 Anxiety disorder, unspecified; D64.9 Anemia, unspecified; E87.6 Hypokalemia; E78.5 Hyperlipidemia, unspecified; G47.00 Insomnia, unspecified; G47.419 Narcolepsy without cataplexy; G30.9 Alzheimer's disease, unspecified; F02.80 Dementia in other diseases classified elsewhere, unspecified severity, without behavioral disturbance, psychotic disturbance, mood disturbance, and anxiety; Z86.73 Personal history of transient ischemic attack (TIA), and cerebral infarction without residual deficits
CPT/HCPCS: 36415; 71275; 76705; 78226; 80048; 80053; 80202; 82248; 82553; 83630; 83690; 83735; 83880; 84443; 84484; 85007; 85025; 85027; 85379; 87045; 87046; 87077; 87086; 87324; 87328; 87329; 87427; 87449; 87635; 93005; 93306; A9537; J1940; J2543; J3370; J3490; Q9967; U0003

== ENCOUNTER 2019-12-01 09:05 | Inpatient (IN) | payer MEDICARE, MEDICAID ==
[2019-12-01] MEDS ORDERED: Ondansetron PF 4 MG/2 ML Vial IVP PRN ×2 (13:02→13:13)
[2019-12-01] MEDS ORDERED: Ondansetron ODT 4 MG TAB SL PRN (13:13)
[2019-12-01] MEDS ORDERED: Acetaminophen 325 MG TAB PO PRN (13:13)
[2019-12-01 14:15] LABS: Hemoglobin 10.6 g/dL (12.0-16.0); Mean Corpuscular HGB CONC 33.1 g/dL (32.0-36.0); Mean Corpuscular Hemoglobin 28.6 pg (27.0-31.0); Mean Corpuscular Volume 86.3 fL (78.0-98.0); Mean Platelet Volume 7.8 fL (7.4-10.4); Platelet Count 271 thou/uL (130-400); RBC Distribution Width 12.8 % (11.5-14.5); Red Blood Cell (RBC) Count 3.73 mill/uL (4.20-5.40); White Blood Cell (WBC) Count 8.8 thou/uL (4.8-10.8)
[2019-12-01] MEDS: Sodium Chloride 0.9% 1,000 ML IV SCH ×3 (15:32→23:23)
--- NOTE | 2019-12-01 18:27 | PDOC.HHP ---
Hospitalist HPI - History of Present Illness coffee ground emesis, rectal bleeding History of Present Illness: This is an 89 year old female with past medical history of dementia, depression who was sent from her detention due to rectal bleeding and coffee ground emesis. The patient reportedly had a mechanical fall this morning at 1:00 am. The patient states she remembers vomiting, but did not pay attention to what color it was. She also says her stools were black. Fecal occult at detention was reportedly positive. She does not take iron supplements. She does take aspirin but doesn't know why she takes it. She denies NSAID use. There is no history of anticoagulant use or PPI use. She denies abdominal pain or diarrhea. ED Course: The patient presented to the ER with normal vitals. She was given 8 mg of zofran , 80 mg of protonix and started on protonix drip. Hemoglobin noted to be 10.6 Hospitalist ROS - Review of Systems Constitutional: denies: fever, chills - Medication Medications: Active Medications Generic Name Dose Route Start Last Admin Trade Name Freq PRN Reason Stop Dose Admin Sodium Chloride 1,000 mls @ 115 mls/hr 12/01/19 13:13 12/01/19 15:32 Normal Saline 0.9% IV 12/01/19 22:30 1,000 mls .[id number] CELE Administration Hospitalist History - Past Medical History Heme/Onc: reports: Anemia NOS Psych: reports: Anxiety, Other (Dementia, insomnia, narcolepsy) - Past Surgical History Past Surgical History: reports: no pertinent history - Social History Alcohol: reports: None Drugs: reports: none - Exam General Appearance: NAD, awake alert Eye: PERRL, anicteric sclera ENT: normocephalic atraumatic, no oropharyngeal lesions Neck: no JVD Heart: RRR, no murmur, no gallops, no rubs Respiratory: CTAB, no wheezes, no rales, no ronchi Gastrointestinal: soft, non-tender, non-distended, normal bowel sounds, voluntary guarding Extremities: no cyanosis, no clubbing, no edema Hospitalist Results - Labs Result Diagrams: 12/01/19 13:55 Lab results: WBC 8.8 thou/uL (4.8-10.8) 12/01/19 13:55 Hgb 10.6 g/dL (12.0-16.0) L 12/01/19 13:55 Hct 32.1 % (36.0-47.0) L 12/01/19 13:55 MCV 86.3 fL (78.0-98.0) 12/01/19 13:55 Plt Count 271 thou/uL (130-400) 12/01/19 13:55 Hospitalist H&P A/P - Plan Plan: This is 89 year old female with dementia presenting with rectal and upper Gi bleeding Upper vs lower GI bleeding - continue protonix drip. Trend CBC in am - GI was consulted, plan on EGD if family is agreeable if hemoglobin drops. During last admission family refused cholecystectomy - rectal exam reportedly negative per GI Dementia - continue memantine Depression - continue celexa Code status: patient believes she is a DNR
--- NOTE | 2019-12-01 20:36 | CON ---
DATE OF CONSULTATION: 12/01/2019 CHIEF COMPLAINT: Vomited blood. HISTORY OF PRESENT ILLNESS: Ms. Mills is an 89-year-old woman, who was just in the hospital a couple of weeks ago with acute cholecystitis that was treated with antibiotics. She had a negative hepatobiliary scan. She had an ultrasound showing gallbladder distention and pericholecystic fluid and cholelithiasis. Her pain got better with antibiotics, in which she was discharged home. She did have an echocardiogram and Cardiology evaluation on 11/17/2019, that showed a normal echo and no cardiac symptoms. She was [facility] back to the [facility] on aspirin due to a history of prior strokes. Yesterday, she reportedly had an episode of coffee-grounds emesis and then passed some dark stools. She has had some diarrhea recently as well and had stool studies when she was in the hospital on 11/16/2019. The stool studies were negative for lactoferrin, negative for C diff, negative O and P and the culture only grew Pseudomonas. She has had no red blood in the stool. She has had dark stools. PAST MEDICAL HISTORY: Hypertension, hyperlipidemia, stroke, and dementia. PAST SURGICAL HISTORY: Negative. FAMILY HISTORY: Negative for GI malignancies. SOCIAL HISTORY: No alcohol, tobacco, or drugs. Her of 70 years a few years ago and she has been living at the intermediate for the last 4 years and has been happy there. ALLERGIES: NO KNOWN DRUG ALLERGIES. MEDICATIONS: Prior to admission: 1. Aspirin. 2. Citalopram. 3. Namenda. 4. Metoprolol. 5. Trazodone. 6. Fluticasone. REVIEW OF SYSTEMS: Negative x10 systems reviewed except as stated in the history of present illness. PHYSICAL EXAMINATION: VITAL SIGNS: Temperature 98.2, pulse 91, and blood pressure 106/72. GENERAL: She is in no acute distress. She is oriented to her name, but is able to hold a conversation, even though she is not oriented to place or year. HEENT: Her eyes have no scleral icterus. Oropharynx is clear without lesions. No cervical or supraclavicular lymphadenopathy. LUNGS: Clear to auscultation bilaterally. HEART: Regular rate and rhythm without murmur. ABDOMEN: Soft, nontender, and nondistended. Bowel sounds are present. EXTREMITIES: No lower extremity edema. RECTAL: Reveals dark brown stool, not melenic stool in the rectal vault. LABORATORY DATA: White blood cell count 8.8, hemoglobin is 10.6 down from 12.0 on 11/18/2019, platelets 271. INR 1.1. Creatinine 0.72. Bilirubin 0.4, AST 17, ALT 15, alkaline phosphatase 44, albumin 2.9, and lipase 21. 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 Her gallbladder was distended and she had some thickening of the duodenum. Ultrasound at that time was noted above. IMPRESSION: 1. Hematemesis and melena. She reportedly had coffee-grounds emesis and dark stools. She has dark brown stool by rectal exam now; however, she did have a decrease in her hemoglobin and could have a bleeding from a peptic ulcer or gastritis or duodenitis. She has been started on proton pump inhibitor IV. 2. Diarrhea. She does report diarrhea 2 or 3 times per day. She had stool studies a couple of weeks ago that were negative. 3. Recent cholecystitis, treated with antibiotics and appears to be resolved clinically now. RECOMMENDATIONS: I discussed options with her family. They would like to proceed with the least invasive round if possible and our plan will be to treat with proton pump inhibitor. We will recheck her hemoglobin in the morning. If her hemoglobin is stable, then we will maintain on proton pump inhibitor and recheck her blood count the next morning with plan to discharge if remained stable then. If her hemoglobin has dropped significantly tomorrow, then we will proceed with upper endoscopy. She has been seen by Cardiology with a normal echocardiogram. I have put her on the schedule for tomorrow morning so that depending on the results of her hemoglobin, we can either proceed with endoscopy or cancel the procedure. Job ID: [id number]
[2019-12-01] MEDS: traZODone HCl 50 MG TAB PO SCH (20:42)
[2019-12-01] MEDS: Pantoprazole 80 MG, Admixture Fee 1 EACH in Sodium Chloride 0.9% 100 ML IVPB SCH (21:05)
[2019-12-02] MEDS: Sodium Chloride 0.9% 1,000 ML IV SCH ×2 (00:03→11:08)
[2019-12-02] MEDS: Citalopram 10 MG TAB PO SCH (08:08)
[2019-12-02] MEDS: Pantoprazole 80 MG, Admixture Fee 1 EACH in Sodium Chloride 0.9% 100 ML IVPB SCH (08:08)
[2019-12-02] MEDS: Fluticasone Propionate Nasal Spray 16 gm Bottle NASAL SCH (08:09)
[2019-12-02 10:03] LABS: #Eosinphils 0.3 thou/uL (0.0-0.7); #Lymphocytes 1.4 thou/uL (1.20-3.40); #Monocytes 0.4 thou/uL (0.11-0.59); #Neutrophils 4.8 thou/uL (1.40-6.50); %Basophils 0.7 % (0.0-1.0); %Eosinophils 4.3 % (0.0-10.0); %Lymphocytes 20.7 % (21.0-51.0); %Monocytes 5.9 % (0.0-10.0); %Neutrophils 68.4 % (42.0-75.0); Hemoglobin 9.3 g/dL (12.0-16.0); Mean Corpuscular HGB CONC 31.6 g/dL (32.0-36.0); Mean Corpuscular Hemoglobin 27.5 pg (27.0-31.0); Mean Corpuscular Volume 87.1 fL (78.0-98.0); Mean Platelet Volume 8.1 fL (7.4-10.4); Platelet Count 184 thou/uL (130-400); RBC Distribution Width 12.9 % (11.5-14.5); Red Blood Cell (RBC) Count 3.38 mill/uL (4.20-5.40)
[2019-12-02 10:05] LABS: Anion Gap 9 mmol/L (10-20); BUN (Urea Nitrogen) 11 mg/dL (9.8-20.1); Calc. Creatinine Clearance 65 mL/min (70-130); Calcium 7.7 mg/dL (7.8-10.44); Carbon Dioxide 21 mmol/L (23-31); Chloride 115 mmol/L (98-107); Estimated GFR-MDRD 83; Glucose 83 mg/dL (83-110); Sodium 141 mmol/L (136-145)
[2019-12-02] MEDS ORDERED: Lidocaine 1% PF 5 ML VIAL ONE (12:42)
[2019-12-02] MEDS ORDERED: PROPOFOL 200 MG/20 ML VIAL ONE (12:42)
[2019-12-02] MEDS ORDERED: Ondansetron HCl/PF 4 MG/2 ML Vial IVP PRN (13:17)
[2019-12-02] MEDS ORDERED: Promethazine HCl 25 MG/ML VIAL SLOW IVP PRN (13:17)
[2019-12-02] MEDS ORDERED: Promethazine HCl 25 MG/ML VIAL IM PRN (13:17)
[2019-12-02 15:05] VITALS: BMI 29.0
--- NOTE | 2019-12-02 16:40 | PDOC.HOSPP ---
- Subjective Encounter Date: 12/02/19 Encounter Time: 14:00 Subjective: The patient is s/p EGD today. She denies abdominal pain. Does not recall any rectal bleeding and states that she just needs to go to the bathroom Per GI she was noted to have erosive gastritis and several bleeding vascular ectasias s/p cauterization - Objective Vital Signs & Weight: Vital Signs (12 hours) Temp Pulse Resp BP Pulse Ox 12/02/19 07:40 98.1 F 75 20 111/75 93 L 12/02/19 05:59 97.6 F 81 16 116/65 96 Weight Admit Weight 154 lb Weight 154 lb I&O: 12/01/19 12/02/19 12/03/19 06:59 06:59 06:59 Intake Total 1700 Balance 1700 Result Diagrams: 12/02/19 09:41 12/02/19 09:41 Hospitalist ROS - Review of Systems Constitutional: denies: fever, chills - Medication Medications: Active Medications Generic Name Dose Route Start Last Admin Trade Name Elsa PRN Reason Stop Dose Admin Citalopram Hydrobromide 5 mg 12/02/19 09:00 12/02/19 08:08 Celexa PO 5 mg DAILY CELE Administration Fluticasone Propionate 0 gm 12/02/19 09:00 12/02/19 08:09 Flonase Nasal [place] NASAL 1 spr DAILY CELE Administration Sodium Chloride 1,000 mls @ 75 mls/hr 12/01/19 23:15 12/02/19 11:08 Normal Saline 0.9% IV Not Given .[id number] CELE Memantine 10 mg 12/01/19 21:00 12/02/19 08:08 Namenda PO 10 mg BID CELE Administration Trazodone HCl 50 mg 12/01/19 21:00 12/01/19 20:42 Desyrel PO 50 mg HS CELE Administration - Exam General Appearance: NAD, awake alert Eye: PERRL, anicteric sclera ENT: normocephalic atraumatic, no oropharyngeal lesions, moist mucosa Neck: supple, symmetric, no JVD, no thyromegaly, no lymphadenopathy, no carotid bruit Heart: RRR, no murmur, no gallops, no rubs, normal peripheral pulses Respiratory: CTAB, no wheezes, no rales, no ronchi, normal chest expansion, no tachypnea, normal percussion Gastrointestinal: soft, non-tender, non-distended, normal bowel sounds, no palpable masses, no hepatomegaly, no splenomegaly, no bruit Extremities: no cyanosis, no clubbing, no edema Skin: normal turgor, no lesions, no rashes Neurological: cranial nerve grossly intact, normal sensation to touch, no weakness, no focal deficits, no new deficit Musculoskeletal: normal tone, normal strength, no muscle wasting Psychiatric: normal affect, normal behavior, A&O x 3 Hosp A/P - Plan This is 89 year old female with dementia presenting with rectal and upper Gi bleeding #Upper GI bleeding secondary to vascular ectasis s/p cauterization #Erosive gastritis - s/p EGD showing erosive gastritis and several bleeding vascular ectasis s/p cauterization in the duodenum - switch to oral protonix bid - per GI , avoid plavix for a couple of weeks - advance to regular diet - trend CBC, likely home in the am Dementia - continue memantine Depression - continue celexa Dispo: likely d/c tomorrow
--- NOTE | 2019-12-02 19:17 | OP ---
DATE OF PROCEDURE: 12/02/2019 PROCEDURE PERFORMED: Esophagogastroduodenoscopy with control of hemorrhage. PREOPERATIVE DIAGNOSES: Gastrointestinal bleed and anemia of acute blood loss. DESCRIPTION OF PROCEDURE: Informed consent was obtained. The patient was sedated with total intravenous anesthesia. The endoscope was advanced easily to the second portion of the duodenum, and retroflexion was performed in the stomach. The esophagus had a distal esophageal ring, which was widely patent and left alone. She has a 1 to 2 cm sliding hiatal hernia. She had mild erosive gastritis in the antrum and in the proximal body of the stomach. The pylorus was normal. There were multiple small vascular ectasias in the first and second portions of the duodenum with active bleeding and friable mucosa. These were cauterized with argon plasma coagulation. The air was suctioned from the stomach, and the procedure was completed. IMPRESSION: 1. Mild erosive gastritis. 2. Widely patent distal esophageal ring. 3. 1 to 2 cm hiatal hernia. 4. Several small vascular ectasias in the first and second portions of the duodenum with active bleeding and surrounding friable mucosa cauterized with argon plasma coagulation. RECOMMENDATIONS: 1. Hold Plavix for a couple of weeks. If she has repeat bleeding in the future, then discontinue it. 2. Advance diet. 3. Anticipate discharge home tomorrow if her hemoglobin is stable. 4. Proton-pump inhibitor orally daily. Job ID: [id number]
[2019-12-02] MEDS: traZODone HCl 50 MG TAB PO SCH (20:12)
[2019-12-03] MEDS: Sodium Chloride 0.9% 1,000 ML IV SCH (03:18)
[2019-12-03 05:38] LABS: Hemoglobin 7.7 g/dL (12.0-16.0); Mean Corpuscular HGB CONC 33.2 g/dL (32.0-36.0); Mean Corpuscular Volume 87.5 fL (78.0-98.0); Mean Platelet Volume 8.1 fL (7.4-10.4); Platelet Count 177 thou/uL (130-400); RBC Distribution Width 13.1 % (11.5-14.5); Red Blood Cell (RBC) Count 2.67 mill/uL (4.20-5.40); White Blood Cell (WBC) Count 5.6 thou/uL (4.8-10.8)
[2019-12-03] MEDS: Citalopram 10 MG TAB PO SCH (08:03)
[2019-12-03] MEDS: Fluticasone Propionate Nasal Spray 16 gm Bottle NASAL SCH (08:04)
--- NOTE | 2019-12-03 12:20 | PDOC.HOSPP ---
- Subjective Encounter Date: 12/03/19 (f/u GI bleed) Encounter Time: 12:18 Subjective: Pt on HD 3, admitted for concern of GI bleed. 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 Pt without complaints of pain today. States she feels 'lazy'. Denies any n/v/ abd pain. She reports diarrhea - the RN/Bethany has not noted any today. - Objective Vital Signs & Weight: Vital Signs (12 hours) Temp Pulse Resp BP Pulse Ox 12/03/19 11:38 98.3 F 82 16 116/53 L 95 12/03/19 07:44 98.3 F 82 18 129/58 L 96 12/03/19 04:00 99.3 F 75 20 111/76 92 L Weight Admit Weight 154 lb Weight 154 lb I&O: 12/02/19 12/03/19 12/04/19 06:59 06:59 06:59 Intake Total 1700 1250 Balance 1700 1250 Result Diagrams: 12/03/19 18:19 12/03/19 18:19 Hospitalist ROS - Medication Medications: Active Medications Generic Name Dose Route Start Last Admin Trade Name Freq PRN Reason Stop Dose Admin Citalopram Hydrobromide 5 mg 12/02/19 09:00 12/03/19 08:03 Celexa PO 5 mg DAILY CELE Administration Fluticasone Propionate 0 gm 12/02/19 09:00 12/03/19 08:04 Flonase Nasal [place] NASAL 1 spr DAILY CELE Administration Memantine 10 mg 12/01/19 21:00 12/03/19 08:05 Namenda PO 10 mg BID CELE Administration Pantoprazole Sodium 40 mg 12/02/19 21:00 12/03/19 08:05 Protonix PO 40 mg BID CELE Administration Trazodone HCl 50 mg 12/01/19 21:00 12/02/19 20:12 Desyrel PO 50 mg HS CELE Administration - Exam General Appearance: NAD Heart: RRR, no murmur Respiratory: CTAB, no wheezes, no rales, no ronchi Gastrointestinal: soft, non-tender, non-distended, normal bowel sounds Extremities: no cyanosis, no clubbing, no edema Psychiatric: normal affect Hosp A/P (1) GI bleed Code(s): K92.2 - GASTROINTESTINAL HEMORRHAGE, UNSPECIFIED Status: Acute Qualifiers: Gastritis type: acute gastritis (2) Anemia Code(s): D64.9 - ANEMIA, UNSPECIFIED Status: Acute Qualifiers: Iron deficiency anemia type: chronic blood loss (3) Anxiety Code(s): F41.9 - ANXIETY DISORDER, UNSPECIFIED Status: Chronic (4) Dementia Code(s): F03.90 - UNSPECIFIED DEMENTIA WITHOUT BEHAVIORAL DISTURBANCE Status: Chronic (5) Generalized weakness Code(s): R53.1 - WEAKNESS Status: Chronic - Plan GI bleed with worsening hb today - secondary to erosive gastritis and vascular ectasias that were cauterized yesterday - Appreciate GI intervention/recommendations - transfuse 1 unit today - bid ppi - repeat cbc after transfusion and in am As pt taking PO - d/c IVF recheck bmp this afternoon and daily Called and spoke with son Jose Antonio regarding situation/transfusion - he agrees, no questions/concerns at end of call. continue usual home meds as ordered hold home plavix per GI instructions - for a few weeks and permanently d/c if there is any rebleeding. dvt prophy - scd's code status DNAR reviewed plan of care with RN/Bethany, son by phone and pt, no questions or further needs at end of eval
--- NOTE | 2019-12-03 12:44 | PRG ---
DATE OF SERVICE: 12/03/2019 SUBJECTIVE: Ms. Mills has not had overt bleeding reported today. However, her hemoglobin has dropped down. OBJECTIVE: VITAL SIGNS: Temperature 98.3, pulse 82, and blood pressure 116/53. GENERAL: She is in no acute distress. Awake and alert. LUNGS: Clear to auscultation bilaterally. HEART: Regular rate and rhythm without murmur. ABDOMEN: Soft, nontender, and nondistended. Bowel sounds are present. EXTREMITIES: No lower extremity edema. IMPRESSION: Gastrointestinal bleed with oozing vascular ectasias in the first and second portions of the duodenum, status post cautery. Her hemoglobin dropped down from 9.3 to 7.7 today. Her Plavix and aspirin have been held. RECOMMENDATIONS: 1. Continue to hold aspirin and Plavix. 2. Pantoprazole twice daily. 3. Transfusion. 4. Recheck her hemoglobin in the morning. Job ID: [id number]
[2019-12-03 18:28] LABS: #Eosinphils 0.4 thou/uL (0.0-0.7); #Lymphocytes 1.9 thou/uL (1.20-3.40); #Monocytes 0.4 thou/uL (0.11-0.59); #Neutrophils 5.1 thou/uL (1.40-6.50); %Basophils 0.2 % (0.0-1.0); %Eosinophils 5.1 % (0.0-10.0); %Lymphocytes 24.3 % (21.0-51.0); %Monocytes 4.9 % (0.0-10.0); %Neutrophils 65.6 % (42.0-75.0); Hemoglobin 9.1 g/dL (12.0-16.0); Mean Corpuscular HGB CONC 34.4 g/dL (32.0-36.0); Mean Corpuscular Volume 87.1 fL (78.0-98.0); Mean Platelet Volume 8.2 fL (7.4-10.4); Platelet Count 189 thou/uL (130-400); Red Blood Cell (RBC) Count 3.04 mill/uL (4.20-5.40); White Blood Cell (WBC) Count 7.8 thou/uL (4.8-10.8)
[2019-12-03 18:48] LABS: Anion Gap 11 mmol/L (10-20); BUN (Urea Nitrogen) 17 mg/dL (9.8-20.1); Calc. Creatinine Clearance 65 mL/min (70-130); Calcium 7.8 mg/dL (7.8-10.44); Carbon Dioxide 19 mmol/L (23-31); Chloride 112 mmol/L (98-107); Estimated GFR-MDRD 83; Glucose 144 mg/dL (83-110); Potassium 3.5 mmol/L (3.5-5.1); Sodium 138 mmol/L (136-145)
[2019-12-03] MEDS: traZODone HCl 50 MG TAB PO SCH (21:11)
[2019-12-04 06:27] LABS: #Eosinphils 0.3 thou/uL (0.0-0.7); #Lymphocytes 1.8 thou/uL (1.20-3.40); #Monocytes 0.5 thou/uL (0.11-0.59); #Neutrophils 4.6 thou/uL (1.40-6.50); %Basophils 0.1 % (0.0-1.0); %Eosinophils 4.3 % (0.0-10.0); %Lymphocytes 25.4 % (21.0-51.0); %Monocytes 6.5 % (0.0-10.0); %Neutrophils 63.6 % (42.0-75.0); Hemoglobin 8.5 g/dL (12.0-16.0); Mean Corpuscular HGB CONC 33.8 g/dL (32.0-36.0); Mean Corpuscular Hemoglobin 29.8 pg (27.0-31.0); Mean Platelet Volume 8.6 fL (7.4-10.4); Platelet Count 179 thou/uL (130-400); RBC Distribution Width 13.3 % (11.5-14.5); Red Blood Cell (RBC) Count 2.84 mill/uL (4.20-5.40); White Blood Cell (WBC) Count 7.2 thou/uL (4.8-10.8)
[2019-12-04 06:54] LABS: Anion Gap 9 mmol/L (10-20); BUN (Urea Nitrogen) 11 mg/dL (9.8-20.1); Calc. Creatinine Clearance 67 mL/min (70-130); Calcium 7.6 mg/dL (7.8-10.44); Carbon Dioxide 25 mmol/L (23-31); Chloride 112 mmol/L (98-107); Estimated GFR-MDRD 86; Glucose 85 mg/dL (83-110); Potassium 3.1 mmol/L (3.5-5.1); Sodium 143 mmol/L (136-145)
[2019-12-04] MEDS: Fluticasone Propionate Nasal Spray 16 gm Bottle NASAL SCH (08:16)
[2019-12-04] MEDS: Citalopram 10 MG TAB PO SCH (08:17)
--- NOTE | 2019-12-04 11:58 | PDOC.HOSPP ---
- Subjective Encounter Date: 12/04/19 (f/u GI bleed) Encounter Time: 11:54 Subjective: Pt without any complaints today - denies any abd pain/n/v. No overnight events from the RN/Bethany - Objective Vital Signs & Weight: Vital Signs (12 hours) Temp Pulse Resp BP Pulse Ox 12/04/19 07:20 98.8 F 78 20 147/73 H 94 L Weight Admit Weight 154 lb Weight 154 lb I&O: 12/03/19 12/04/19 12/05/19 06:59 06:59 06:59 Intake Total 1250 350 Balance 1250 350 Result Diagrams: 12/04/19 05:30 12/04/19 05:30 Hospitalist ROS - Medication Medications: Active Medications Generic Name Dose Route Start Last Admin Trade Name Elsa PRN Reason Stop Dose Admin Citalopram Hydrobromide 5 mg 12/02/19 09:00 12/04/19 08:17 Celexa PO 5 mg DAILY CELE Administration Fluticasone Propionate 0 gm 12/02/19 09:00 12/04/19 08:16 Flonase Nasal [place] NASAL 1 spr DAILY CELE Administration Memantine 10 mg 12/01/19 21:00 12/04/19 08:16 Namenda PO 10 mg BID CELE Administration Pantoprazole Sodium 40 mg 12/02/19 21:00 12/04/19 08:16 Protonix PO 40 mg BID CELE Administration Trazodone HCl 50 mg 12/01/19 21:00 12/03/19 21:11 Desyrel PO 50 mg HS CELE Administration - Exam General Appearance: NAD Heart: RRR, no murmur Respiratory: CTAB, no wheezes, no rales, no ronchi Gastrointestinal: soft, non-tender, non-distended, normal bowel sounds Extremities: no cyanosis, no clubbing, no edema Psychiatric: normal affect Hosp A/P (1) GI bleed Code(s): K92.2 - GASTROINTESTINAL HEMORRHAGE, UNSPECIFIED Status: Resolved Qualifiers: Gastritis type: acute gastritis (2) Anemia Code(s): D64.9 - ANEMIA, UNSPECIFIED Status: Acute Qualifiers: Iron deficiency anemia type: chronic blood loss (3) Anxiety Code(s): F41.9 - ANXIETY DISORDER, UNSPECIFIED Status: Chronic (4) Dementia Code(s): F03.90 - UNSPECIFIED DEMENTIA WITHOUT BEHAVIORAL DISTURBANCE Status: Chronic (5) Generalized weakness Code(s): R53.1 - WEAKNESS Status: Chronic (6) Hypokalemia Code(s): E87.6 - HYPOKALEMIA Status: Acute - Plan GI bleed s/p cautery and initiation of BID protonix, and s/p 1 unit prbc yesterday with improvement in Hb today. - Appreciate GI intervention/recommendations - will plan to repeat the Hb in AM and if the same, plan for discharge back to her nursing facility. Called and spoke with son Jose Antonio with update continue usual home meds as ordered hold home plavix per GI instructions - for a few weeks and permanently d/c if there is any rebleeding. Replace potassium and recheck in AM along with magnesium dvt prophy - scd's code status DNAR reviewed plan of care with patient and son by phone Anticipate d/c tomorrow if anemia stable
--- NOTE | 2019-12-04 14:36 | PRG ---
DATE OF SERVICE: 12/04/2019 SUBJECTIVE: Ms. Mills has had no further overt bleeding. She has no abdominal pain or nausea or vomiting. She is tolerating her diet well. OBJECTIVE: VITAL SIGNS: Temperature 98.8, pulse 78, blood pressure 147/73. GENERAL: She is in no acute distress. She is alert and oriented x3. LUNGS: Clear to auscultation bilaterally. HEART: Regular rate and rhythm without murmur. ABDOMEN: Soft, nontender, and nondistended. Bowel sounds are present. EXTREMITIES: No lower extremity edema. LABORATORY DATA: Hemoglobin is 8.5 today, up from 7.7 from yesterday after 1 unit of transfusion. IMPRESSION: 1. Gastrointestinal bleed with oozing vascular ectasias in the first and second portions of the duodenum, status post cautery. Her hemoglobin responded appropriately to transfusion yesterday. 2. Anemia of acute blood loss. RECOMMENDATIONS: 1. Plavix and aspirin have been held. She can likely restart Plavix in a couple weeks, but if she has further bleeding, then that can be stopped permanently. 2. Proton-pump inhibitor orally. She can take this twice daily for a couple of weeks and then it can be dropped back to once daily. 3. Recheck her hemoglobin in the morning. Job ID: [id number]
[2019-12-04] MEDS: traZODone HCl 50 MG TAB PO SCH (20:17)
[2019-12-05 05:33] LABS: #Eosinphils 0.3 thou/uL (0.0-0.7); #Lymphocytes 1.9 thou/uL (1.20-3.40); #Monocytes 0.5 thou/uL (0.11-0.59); #Neutrophils 4.4 thou/uL (1.40-6.50); %Basophils 0.3 % (0.0-1.0); %Eosinophils 3.7 % (0.0-10.0); %Lymphocytes 26.6 % (21.0-51.0); %Monocytes 7.1 % (0.0-10.0); %Neutrophils 62.3 % (42.0-75.0); Hemoglobin 7.5 g/dL (12.0-16.0); Mean Corpuscular HGB CONC 33.7 g/dL (32.0-36.0); Mean Corpuscular Hemoglobin 29.6 pg (27.0-31.0); Mean Corpuscular Volume 87.7 fL (78.0-98.0); Mean Platelet Volume 8.6 fL (7.4-10.4); Platelet Count 164 thou/uL (130-400); RBC Distribution Width 13.7 % (11.5-14.5); Red Blood Cell (RBC) Count 2.54 mill/uL (4.20-5.40); White Blood Cell (WBC) Count 7.1 thou/uL (4.8-10.8)
[2019-12-05 05:58] LABS: Anion Gap 7 mmol/L (10-20); BUN (Urea Nitrogen) 13 mg/dL (9.8-20.1); Calc. Creatinine Clearance 73 mL/min (70-130); Calcium 7.7 mg/dL (7.8-10.44); Carbon Dioxide 26 mmol/L (23-31); Chloride 110 mmol/L (98-107); Estimated GFR-MDRD Greater than 90; Glucose 94 mg/dL (83-110); Magnesium 1.8 mg/dL (1.6-2.6); Potassium 3.2 mmol/L (3.5-5.1); Sodium 140 mmol/L (136-145)
[2019-12-05] MEDS: Fluticasone Propionate Nasal Spray 16 gm Bottle NASAL SCH (08:29)
[2019-12-05] MEDS: Citalopram 10 MG TAB PO SCH (08:29)
--- NOTE | 2019-12-05 09:17 | PDOC.HOSPP ---
- Subjective Encounter Date: 12/05/19 (f/u GI bleed) Encounter Time: 09:15 Subjective: Pt is asking to go back to the nursing facility, states she wants to be where her clothes are. She denies any pain/n/v. - Objective Vital Signs & Weight: Vital Signs (12 hours) Temp Pulse Resp BP Pulse Ox 12/05/19 07:29 97.9 F 73 20 127/69 96 Weight Admit Weight 154 lb Weight 154 lb I&O: 12/04/19 12/05/19 12/06/19 06:59 06:59 06:59 Intake Total 350 Balance 350 Result Diagrams: 12/05/19 05:13 12/05/19 05:13 Hospitalist ROS - Medication Medications: Active Medications Generic Name Dose Route Start Last Admin Trade Name Elsa PRN Reason Stop Dose Admin Citalopram Hydrobromide 5 mg 12/02/19 09:00 12/05/19 08:29 Celexa PO 5 mg DAILY CELE Administration Fluticasone Propionate 0 gm 12/02/19 09:00 12/05/19 08:29 Flonase Nasal [place] NASAL 1 spr DAILY CLEE Administration Memantine 10 mg 12/01/19 21:00 12/05/19 08:29 Namenda PO 10 mg BID CELE Administration Pantoprazole Sodium 40 mg 12/02/19 21:00 12/05/19 08:29 Protonix PO 40 mg BID CELE Administration Sodium Chloride 10 ml 12/04/19 21:00 12/05/19 08:30 Flush - Normal Saline IVF 10 ml Q12HR CELE Administration Trazodone HCl 50 mg 12/01/19 21:00 12/04/19 20:17 Desyrel PO 50 mg HS CELE Administration - Exam General Appearance: NAD Heart: RRR, no murmur Respiratory: CTAB, no wheezes, no rales, no ronchi Gastrointestinal: soft, non-tender, non-distended, normal bowel sounds Extremities: no cyanosis, no clubbing, no edema Psychiatric: normal affect Hosp A/P (1) GI bleed Code(s): K92.2 - GASTROINTESTINAL HEMORRHAGE, UNSPECIFIED Status: Resolved Qualifiers: Gastritis type: acute gastritis (2) Anemia Code(s): D64.9 - ANEMIA, UNSPECIFIED Status: Acute Qualifiers: Iron deficiency anemia type: chronic blood loss (3) Anxiety Code(s): F41.9 - ANXIETY DISORDER, UNSPECIFIED Status: Chronic (4) Dementia Code(s): F03.90 - UNSPECIFIED DEMENTIA WITHOUT BEHAVIORAL DISTURBANCE Status: Chronic (5) Generalized weakness Code(s): R53.1 - WEAKNESS Status: Chronic (6) Hypokalemia Code(s): E87.6 - HYPOKALEMIA Status: Acute - Plan GI bleed s/p cautery and initiation of BID protonix, with worsening Hb today. - transfuse another 1 unit prbc - D/w Dr. Mejia - no indication for repeat procedure at this time - likely secondary to persistent oozing from aspirin - will plan to repeat the Hb in AM. Called and spoke with son Jose Antonio with update continue usual home meds as ordered hold home aspirin (reviewed home medications) per GI instructions - for a few weeks and permanently d/c if there is any rebleeding. Replace potassium dvt prophy - scd's code status DNAR reviewed plan of care with patient and son by phone this morning Anticipate d/c when hemoglobin is stable.
--- NOTE | 2019-12-05 12:41 | PRG ---
DATE OF SERVICE: 12/05/2019 SUBJECTIVE: Ms. Mills has had no overt bleeding today. She has no abdominal pain or nausea. OBJECTIVE: VITAL SIGNS: Temperature 98.3, pulse 73, blood pressure 119/79. GENERAL: She is in no acute distress. Pleasantly demented. LUNGS: Clear to auscultation bilaterally. HEART: Regular rate and rhythm without murmur. ABDOMEN: Soft, nontender, and nondistended. Bowel sounds are present. EXTREMITIES: No lower extremity edema. LABORATORY DATA: Hemoglobin was 7.5 today. Creatinine 0.6. IMPRESSION: 1. Gastrointestinal bleed secondary to duodenal vascular ectasia status post cautery. Her hemoglobin has trended down today again and she is receiving 1 unit transfusion. She has had no significant overt bleeding. 2. Anemia of acute blood loss. RECOMMENDATIONS: 1. Continue proton pump inhibitor. 2. If her hemoglobin responds appropriately to the transfusion by labs tomorrow morning, she should be ready to discharge tomorrow. 3. Aspirin has been discontinued. I would just allow more time for her to remain off this for a couple of days before reconsidering repeat endoscopy depending on the trend of her hemoglobin and signs of overt bleeding. Job ID: [id number]
--- NOTE | 2019-12-05 17:02 | PDOC.FMACP ---
Advance Care Planning - Problem (1) Palliative care encounter Status: Acute Code(s): Z51.5 - ENCOUNTER FOR PALLIATIVE CARE (2) GI bleed Status: Resolved Code(s): K92.2 - GASTROINTESTINAL HEMORRHAGE, UNSPECIFIED Qualifiers: Gastritis type: acute gastritis (3) Abdominal pain Status: Acute Code(s): R10.9 - UNSPECIFIED ABDOMINAL PAIN Qualifiers: Abdominal location: epigastric Qualified Code(s): R10.13 - Epigastric pain (4) Anemia Status: Acute Code(s): D64.9 - ANEMIA, UNSPECIFIED Qualifiers: Iron deficiency anemia type: chronic blood loss (5) Dementia Status: Chronic Code(s): F03.90 - UNSPECIFIED DEMENTIA WITHOUT BEHAVIORAL DISTURBANCE - Note Participants: family, palliative care Summary: Palliative Care introduced Advanced Care Planning to family as patient is confused. Reviewed diagnosis, prognosis and goals of care were discussed. Family state that [facility] are at patient skilled nursing. Fide Benitez Palliative Care registrar to follow up, and attempt to secure copies of documents for patient chart at hospital. Will attempt to secure OOHDNAR or complete if not located. All questions were answered. The Palliative Care Team will be engaged to assist with completion of any outstanding forms that are identified. Please refer to Fide Benitez Palliative Care Registrar documentation in notes section for information in relation to family/contact phone numbers. Time Spent (mins): 20
[2019-12-05] MEDS: traZODone HCl 50 MG TAB PO SCH (19:40)
[2019-12-06 08:29] LABS: #Eosinphils 0.2 thou/uL (0.0-0.7); #Lymphocytes 1.6 thou/uL (1.20-3.40); #Monocytes 0.4 thou/uL (0.11-0.59); #Neutrophils 5.3 thou/uL (1.40-6.50); %Basophils 0.6 % (0.0-1.0); %Eosinophils 3.1 % (0.0-10.0); %Lymphocytes 21.2 % (21.0-51.0); %Monocytes 5.7 % (0.0-10.0); %Neutrophils 69.4 % (42.0-75.0); Hemoglobin 10.8 g/dL (12.0-16.0); Mean Corpuscular HGB CONC 32.4 g/dL (32.0-36.0); Mean Corpuscular Volume 89.2 fL (78.0-98.0); Mean Platelet Volume 7.6 fL (7.4-10.4); Platelet Count 164 thou/uL (130-400); RBC Distribution Width 14.3 % (11.5-14.5); Red Blood Cell (RBC) Count 3.74 mill/uL (4.20-5.40); White Blood Cell (WBC) Count 7.7 thou/uL (4.8-10.8)
[2019-12-06 08:50] LABS: Anion Gap 10 mmol/L (10-20); BUN (Urea Nitrogen) 9 mg/dL (9.8-20.1); Calc. Creatinine Clearance 66 mL/min (70-130); Calcium 8.4 mg/dL (7.8-10.44); Carbon Dioxide 26 mmol/L (23-31); Chloride 109 mmol/L (98-107); Estimated GFR-MDRD 85; Glucose 114 mg/dL (83-110); Potassium 3.9 mmol/L (3.5-5.1); Sodium 141 mmol/L (136-145)
[2019-12-06] MEDS: Citalopram 10 MG TAB PO SCH (09:08)
[2019-12-06] MEDS: Fluticasone Propionate Nasal Spray 16 gm Bottle NASAL SCH (09:09)
--- NOTE | 2019-12-06 10:46 | PDOC.HOSPP ---
- Subjective Encounter Date: 12/06/19 (f/u GI bleed) Encounter Time: 10:43 Subjective: Pt without complaints today. Denies any cp/sob/n/v/abd pain. She desires to return to her home. - Objective Vital Signs & Weight: Weight Admit Weight 154 lb Weight 154 lb I&O: 12/05/19 12/06/19 12/07/19 06:59 06:59 06:59 Intake Total 1010 Balance 1010 Result Diagrams: 12/06/19 08:22 12/06/19 08:22 Hospitalist ROS - Medication Medications: Active Medications Generic Name Dose Route Start Last Admin Trade Name Herbertq PRN Reason Stop Dose Admin Citalopram Hydrobromide 5 mg 12/02/19 09:00 12/06/19 09:08 Celexa PO 5 mg DAILY CELE Administration Fluticasone Propionate 0 gm 12/02/19 09:00 12/06/19 09:09 Flonase Nasal [place] NASAL 1 spr DAILY CELE Administration Memantine 10 mg 12/01/19 21:00 12/06/19 09:08 Namenda PO 10 mg BID CELE Administration Pantoprazole Sodium 40 mg 12/02/19 21:00 12/06/19 09:09 Protonix PO 40 mg BID CELE Administration Potassium Chloride 20 meq 12/05/19 17:00 12/06/19 09:08 Klor-Con PO 20 meq BID-WM CELE Administration Sodium Chloride 10 ml 12/04/19 21:00 12/06/19 09:10 Flush - Normal Saline IVF 10 ml Q12HR CELE Administration Trazodone HCl 50 mg 12/01/19 21:00 12/05/19 19:40 Desyrel PO 50 mg HS CELE Administration - Exam General Appearance: NAD Heart: RRR, no murmur Respiratory: CTAB, no wheezes, no rales, no ronchi Gastrointestinal: soft, non-tender, non-distended, normal bowel sounds Neurological: no focal deficits Musculoskeletal: normal tone Psychiatric: normal affect Hosp A/P (1) GI bleed Code(s): K92.2 - GASTROINTESTINAL HEMORRHAGE, UNSPECIFIED Status: Resolved Qualifiers: Gastritis type: acute gastritis (2) Anemia Code(s): D64.9 - ANEMIA, UNSPECIFIED Status: Acute Qualifiers: Iron deficiency anemia type: chronic blood loss (3) Anxiety Code(s): F41.9 - ANXIETY DISORDER, UNSPECIFIED Status: Chronic (4) Dementia Code(s): F03.90 - UNSPECIFIED DEMENTIA WITHOUT BEHAVIORAL DISTURBANCE Status: Chronic (5) Generalized weakness Code(s): R53.1 - WEAKNESS Status: Chronic (6) Hypokalemia Code(s): E87.6 - HYPOKALEMIA Status: Acute - Plan GI bleed s/p cautery and initiation of BID protonix, with significantly improved hemoglobin today. - repeat hemoglobin at 13:00 today and if at least 8.5 (expected level after 1 unit prbc yesterday) then will plan for discharge. No aspirin for a few weeks. dvt prophy - scd's code status DNAR reviewed plan of care with patient who agrees, no questions or further needs at end of eval. Anticipate d/c today.
[2019-12-06 13:30] LABS: Hemoglobin 11.1 g/dL (12.0-16.0)
--- NOTE | 2019-12-06 14:41 | DIS ---
DATE OF ADMISSION: 12/03/2019 DATE OF DISCHARGE: 12/06/2019 CONSULTANTS: Dr. Mejia, Gastroenterology PROCEDURES; EGD DISCHARGE MEDICATIONS: Discontinued medication is aspirin. This is discontinued for approximately 2 weeks. If it is necessary, it can be restarted. However, if there is any recurrence of GI bleed, it needs to be permanently discontinued. New medication: Pantoprazole 40 mg p.o. b.i.d., prescription provided for 30 days, primary care provider to refill further and it is recommended that the patient stay on it at this dose. Medications to resume: 1. Celexa 10 mg daily. 2. Flonase one spray each nostril daily. 3. Namenda 10 mg b.i.d. 4. Metoprolol 12.5 mg p.o. daily. Per the chart review, it is just metoprolol tartrate, however, she should resume whatever medication she was previously on. 5. Zofran ODT 4 mg q.6 hours p.r.n. 6. Trazodone 50 mg at bedtime. FINAL DIAGNOSES: 1. Upper gastrointestinal bleed secondary to erosive gastritis and vascular ectasias of the duodenum. 2. Anemia secondary to above, status post transfusion of 2 units of packed red blood cells. 3. Hypokalemia, resolved. SECONDARY DIAGNOSES: 1. Dementia. 2. Depression. 3. Generalized weakness. 4. Anxiety. 5. Hiatal hernia HISTORY OF PRESENT ILLNESS: Ms. Mills is an 89-year-old female, who presented to the emergency room after a mechanical fall. The patient had been reporting black stools as well as an episode of vomiting. Because of her symptoms, she was admitted to the hospital. HOSPITAL COURSE: The patient was evaluated by Gastroenterology and underwent EGD on December 01. She was found to have mild erosive gastritis, 1 to 2 cm hiatal hernia , and several small vascular ectasias in the first and second portions of the duodenum with active bleeding and surrounding friable mucosa that was cauterized with argon plasma coagulation. She tolerated this well. Postprocedure, her hemoglobin was followed and she required transfusion on two separate days, December 02 and December 04. On those days, her hemoglobin was 7.7 and 7.5 respectively. Today, her hemoglobin is 10.8. Because of the significant increase in hemoglobin after only 1 unit of PRBC's, the hemoglobin was repeated this afternoon and is 11.1. She is overall feeling well, hemodynamically normal, and she does meet criteria for discharge. It is recommended that she is off the aspirin for a few weeks. If it is needed, it can be re-attempted. However, with any further bleeding, it should be immediately and permanently discontinued. The patient should stay on as twice daily on PPI. The patient was continued on her usual medications of Namenda and Celexa. Her potassium was replaced while here and today it is normal. PHYSICAL EXAMINATION: Please see the note on the chart. FIGUEROA FINDINGS AND TEST RESULTS: CBC today is 7.7, 10.8, 33.4, and 164. On admission, CBC of 8.8, 10.6, 32.1, 271. Chemistry; 141, 3.9, 109, 26, 9, 0.66, and 114. Operative report on EGD, December 01, shows mild erosive gastritis, widely patent distal esophageal ring, 1 to 2 cm hiatal hernia, several small vascular ectasias in the first and second portions of the duodenum with active bleeding and surrounding friable mucosa cauterized with argon plasma coagulation. Blood type is O positive. Antibody negative. DIET: Regular. ACTIVITY: As tolerated, PT/OT requested if available at her nursing facility. DISCHARGE DISPOSITION: Back to her long-term care nursing facility. Throughout this hospitalization, I communicated with her son, Jovanni, about the status, transfusion, procedure, and again talked with him today about the return back to her nursing facility. There were no questions. CODE STATUS: Do not resuscitate. TIME SPENT: Total time coordinating discharge is 35 minutes. Job ID: [id number] [facility]
[2019-12-06 21:00] VITALS: BP 153/83; TEMP 98.5
[2019-12-06] MEDS: traZODone HCl 50 MG TAB PO SCH (21:24)
== END 2019-12-06 22:48 | DRG 378 ==
LOC: ERS 09:05 → T4-A 10:44 → OBSVTOIN 12-03 12:18 → T4-A 12-04 15:31
PROVIDERS: ADMIT Internal Medicine; ATTEND Internal Medicine
PROC: 0W3P8ZZ Control Bleeding in Gastrointestinal Tract, Via Natural or Artificial Opening Endoscopic (ICD-10-PCS; principal; 2019-12-02)
PROC: 30233N1 Transfusion of Nonautologous Red Blood Cells into Peripheral Vein, Percutaneous Approach (ICD-10-PCS; 2019-12-03)
DX: K31.811 Angiodysplasia of stomach and duodenum with bleeding (principal); D62 Acute posthemorrhagic anemia; Z66 Do not resuscitate; Z51.5 Encounter for palliative care; K29.01 Acute gastritis with bleeding; F03.90 Unspecified dementia, unspecified severity, without behavioral disturbance, psychotic disturbance, mood disturbance, and anxiety; F32.9 Major depressive disorder, single episode, unspecified; F41.9 Anxiety disorder, unspecified; G47.00 Insomnia, unspecified; G47.419 Narcolepsy without cataplexy; I10 Essential (primary) hypertension; E78.5 Hyperlipidemia, unspecified; G31.84 Mild cognitive impairment of uncertain or unknown etiology; K44.9 Diaphragmatic hernia without obstruction or gangrene; E87.6 Hypokalemia; Z79.82 Long term (current) use of aspirin; Z79.899 Other long term (current) drug therapy; Z86.73 Personal history of transient ischemic attack (TIA), and cerebral infarction without residual deficits
CPT/HCPCS: 36415; 36430; 80048; 83735; 85025; 85027; 86850; 86900; 86901; 96365; 96366; C9113; G0378; J2001; J2704; J3490; P9016